=== PATIENT | male | born 1930 | race Caucasian/White ===

== ENCOUNTER 2020-02-16 09:03 | Outpatient (CLI) | payer MEDICARE, OTHER ==
--- NOTE | 2020-02-16 09:57 | RAD ---
PA AND LATERAL VIEWS CHEST: HISTORY: Dyspnea. FINDINGS: Comparison is made with the exam of 04/28/2019. FINDINGS: The heart size is normal. The aorta is tortuous. 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 Chr onic parenchymal changes are again noted. No pneumothoraces, focal areas of consolidation, or pleura l effusions are seen. A hiatal hernia is redemonstrated. IMPRESSION: Stable exam. No acute process. POS: PRISCILLA
== END 2020-02-16 09:04 | disposition home or self-care (01) ==
LOC: BICRAD 09:03
PROVIDERS: ATTEND Internal Medicine Critical Care Medicine
DX: R06.00 Dyspnea, unspecified (principal)
CPT/HCPCS: 71046

== ENCOUNTER 2020-02-24 09:30 | Outpatient (CLI) | payer MEDICARE ==
--- NOTE | 2020-02-24 11:35 | CT ---
HIGH RESOLUTION CT OF THE THORAX WITHOUT IV CONTRAST: INDICATION: An 89-year-old male with shortness of breath for many years. COMPARISON: No CT comparisons are available. FINDINGS: There is interstitial thickening involving the interlobular and intralobular segments of the peripher al aspects of both lungs seen predominantly in a basilar distribution with peripheral bronchiectasis seen affecting both lungs again more prominent within the lower lobes. There are patchy areas of jim a-[id number]-type airspace opacity within the lingula suspicious for an area of bronchopneumonia. There is also some tree-in-bud nodularity within the left upper lobe suspicious for bronchopneumonia. Ther e is a large hiatal hernia. There are coronary artery and thoracic aorta calcifications. There is c ardiomegaly. There is a dual-lead pacemaker. There is a mildly prominent right paratracheal lymph n ode measuring 1.3 cm. Visualized upper abdomen reveals no definite acute abnormality. IMPRESSION: 1. Findings of moderate to severe interstitial lung disease seen predominantly in a basilar distribu tion which can be related to usual interstitial pneumonitis or nonspecific interstitial pneumonia. 2. Areas of suspected bronchopneumonia in the left upper lobe and lingula. CT followup in 6-8 weeks is recommended to document resolution. 3. Large hiatal hernia. 4. Enlarged right paratracheal lymph node may be reactive in nature. Followup on the above-recommen ded CT is recommended. CODE T POS: JOSIAH
== END 2020-02-24 09:31 | disposition home or self-care (01) ==
LOC: CT 09:30
PROVIDERS: ATTEND Internal Medicine Critical Care Medicine
DX: R06.09 Other forms of dyspnea (principal); K44.9 Diaphragmatic hernia without obstruction or gangrene; R59.0 Localized enlarged lymph nodes; J84.9 Interstitial pulmonary disease, unspecified
CPT/HCPCS: 71250

== ENCOUNTER 2020-04-01 11:15 | Inpatient (IN) | payer MEDICARE ==
[2020-06-04 13:59] VITALS: BMI 25.1
[2020-06-08] MEDS ORDERED: Vancomycin 1 GM/200 ML BAG ONE (07:12)
[2020-06-08] MEDS ORDERED: Tranexamic Acid 1,000 MG/10 ML VIAL ONE (07:12)
[2020-06-08] MEDS ORDERED: Sodium Chloride 0.9% 100 ML ONE (07:12)
[2020-06-08] MEDS ORDERED: Midazolam HCl 2 mg/2 ml Vial ONE ×2 (08:15→08:33)
[2020-06-08] MEDS ORDERED: Fentanyl 100 MCG/2 ML VIAL ONE ×2 (08:15→08:33)
[2020-06-08] MEDS ORDERED: Lidocaine 1% (PF) 30 ML VIAL ONE (08:33)
[2020-06-08] MEDS ORDERED: Zolpidem Tartrate 5 MG TAB PO PRN ×2 (08:58→09:15)
[2020-06-08] MEDS ORDERED: Promethazine HCl 25 MG/ML VIAL IM PRN ×2 (08:58→09:15)
[2020-06-08] MEDS ORDERED: traMADol HCl 50 MG TAB PO PRN ×3 (08:58→09:15)
[2020-06-08] MEDS ORDERED: Ondansetron PF 4 MG/2 ML Vial IVP PRN ×2 (08:58→09:15)
[2020-06-08] MEDS ORDERED: Acetaminophen 325 MG TAB PO PRN (08:58)
[2020-06-08] MEDS ORDERED: HYDROcodone/Acetaminophen 10/325 mg Tablet PO PRN ×4 (08:58→09:15)
[2020-06-08] MEDS ORDERED: diphenhydrAMINE 25 MG CAP PO PRN (08:58)
[2020-06-08] MEDS: Tamsulosin HCl 0.4 MG CAP PO SCH (09:00)
[2020-06-08] MEDS: Senokot S 8.6-50 MG TAB PO SCH ×2 (09:00→20:34)
[2020-06-08] MEDS ORDERED: Aspirin 81 mg Enteric Coated Tablet PO SCH (09:00)
[2020-06-08] MEDS: Multivitamin W/ Minerals 1 TAB PO SCH (09:00)
[2020-06-08] MEDS: Pregabalin 50 MG CAP PO SCH ×2 (09:00→20:34)
[2020-06-08] MEDS: Sodium Chloride 0.9% 1,000 ML IV SCH ×3 (09:00→22:41)
[2020-06-08] MEDS ORDERED: Dutasteride 0.5 MG CAP PO SCH (09:00)
[2020-06-08] MEDS: Ferrous Gluconate 324 MG TAB PO SCH ×2 (09:00→20:34)
[2020-06-08] MEDS: Dronedarone HCl 400 MG TAB PO SCH ×2 (09:00→20:34)
[2020-06-08] MEDS: Aspirin 325 MG TAB PO SCH (09:00)
[2020-06-08] MEDS ORDERED: Ezetimibe 10 MG TAB PO SCH (09:00)
[2020-06-08] MEDS ORDERED: Fentanyl 100 MCG/2 ML VIAL IV PRN (09:04)
[2020-06-08] MEDS ORDERED: Ondansetron PF 4 MG/2 ML Vial ONE (09:12)
[2020-06-08] MEDS ORDERED: Ropivacaine 0.5% HCl/PF (150 MG/30 ML VIAL) ONE (09:12)
[2020-06-08] MEDS ORDERED: Ropivacaine 2% HCl/PF (20 MG/10 ML VIAL) ONE (09:12)
[2020-06-08] MEDS ORDERED: Lidocaine 1% PF 5 ML VIAL ONE (09:12)
[2020-06-08] MEDS ORDERED: Ketorolac Tromethamine 30 MG/ML VIAL ONE (09:12)
[2020-06-08] MEDS ORDERED: Dexamethasone 20 MG/5 ML VIAL ONE (09:12)
[2020-06-08] MEDS ORDERED: PROPOFOL 200 MG/20 ML VIAL ONE (09:12)
[2020-06-08] MEDS ORDERED: Ropivacaine 0.2% 550 ML 550 ML NERVE BLCK SCH (09:15)
[2020-06-08] MEDS ORDERED: Ondansetron HCl/PF 4 MG/2 ML Vial IVP PRN (09:55)
[2020-06-08] MEDS: Ketorolac Tromethamine 30 MG/ML VIAL IVP SCH ×3 (14:50→23:18)
[2020-06-08] MEDS: CEFAZOLIN 2 GM in Premix Bag 1 BAG IVPB SCH ×2 (15:07→22:12)
[2020-06-08] MEDS: Rosuvastatin 20 MG TAB PO SCH (20:34)
[2020-06-08] MEDS: Ezetimibe 10 MG TAB PO SCH (22:12)
[2020-06-08] MEDS: Dutasteride 0.5 MG CAP PO SCH (22:12)
[2020-06-09] MEDS: Ketorolac Tromethamine 30 MG/ML VIAL IVP SCH ×4 (05:46→23:05)
[2020-06-09] MEDS: Sodium Chloride 0.9% 1,000 ML IV SCH ×2 (06:16→15:14)
[2020-06-09 06:30] LABS: Hemoglobin 10.3 g/dL (14.0-18.0); Mean Corpuscular HGB CONC 33.8 g/dL (32.0-36.0); Mean Corpuscular Hemoglobin 28.5 pg (27.0-31.0); Mean Corpuscular Volume 84.3 fL (78.0-98.0); Mean Platelet Volume 7.8 fL (7.4-10.4); Platelet Count 148 thou/uL (130-400); RBC Distribution Width 13.2 % (11.5-14.5); Red Blood Cell (RBC) Count 3.62 mill/uL (4.70-6.10); White Blood Cell (WBC) Count 10.5 thou/uL (4.8-10.8)
[2020-06-09] MEDS: Aspirin 325 MG TAB PO SCH (08:40)
[2020-06-09] MEDS: Tamsulosin HCl 0.4 MG CAP PO SCH (08:40)
[2020-06-09] MEDS: Senokot S 8.6-50 MG TAB PO SCH ×2 (08:40→19:57)
[2020-06-09] MEDS: Fluticasone Propionate Nasal Spray 16 gm Bottle NASAL SCH (08:40)
[2020-06-09] MEDS: Dronedarone HCl 400 MG TAB PO SCH ×2 (08:40→19:59)
[2020-06-09] MEDS: Ferrous Gluconate 324 MG TAB PO SCH ×2 (08:41→19:59)
[2020-06-09] MEDS: Pregabalin 50 MG CAP PO SCH ×2 (08:41→19:57)
[2020-06-09] MEDS: Multivitamin W/ Minerals 1 TAB PO SCH (08:41)
[2020-06-09] MEDS: Dutasteride 0.5 MG CAP PO SCH (19:57)
[2020-06-09] MEDS: Rosuvastatin 20 MG TAB PO SCH (19:58)
[2020-06-09] MEDS: Ezetimibe 10 MG TAB PO SCH (19:59)
[2020-06-10] MEDS: Sodium Chloride 0.9% 1,000 ML IV SCH ×2 (03:08→11:23)
[2020-06-10] MEDS: Ketorolac Tromethamine 30 MG/ML VIAL IVP SCH (05:19)
[2020-06-10 05:47] LABS: #Eosinphils 0.3 thou/uL (0.0-0.7); #Lymphocytes 1.8 thou/uL (1.20-3.40); #Monocytes 1.2 thou/uL (0.11-0.59); #Neutrophils 7.2 thou/uL (1.40-6.50); %Basophils 0.4 % (0.0-1.0); %Eosinophils 2.9 % (0.0-10.0); %Lymphocytes 17.3 % (21.0-51.0); %Neutrophils 68.4 % (42.0-75.0); Hemoglobin 10.3 g/dL (14.0-18.0); Hemoglobin 10.5 g/dL (14.0-18.0); Mean Corpuscular HGB CONC 32.1 g/dL (32.0-36.0); Mean Corpuscular HGB CONC 32.6 g/dL (32.0-36.0); Mean Corpuscular Hemoglobin 26.9 pg (27.0-31.0); Mean Corpuscular Hemoglobin 27.3 pg (27.0-31.0); Mean Platelet Volume 7.9 fL (7.4-10.4); Mean Platelet Volume 8.4 fL (7.4-10.4); Platelet Count 145 thou/uL (130-400); Platelet Count 148 thou/uL (130-400); RBC Distribution Width 13.7 % (11.5-14.5); Red Blood Cell (RBC) Count 3.82 mill/uL (4.70-6.10); Red Blood Cell (RBC) Count 3.83 mill/uL (4.70-6.10); White Blood Cell (WBC) Count 10.5 thou/uL (4.8-10.8); White Blood Cell (WBC) Count 10.9 thou/uL (4.8-10.8)
[2020-06-10 06:17] LABS: Anion Gap 12 mmol/L (10-20); BUN (Urea Nitrogen) 33 mg/dL (8.4-25.7); Calc. Creatinine Clearance 39 mL/min (70-130); Calcium 7.4 mg/dL (7.8-10.44); Carbon Dioxide 20 mmol/L (23-31); Chloride 112 mmol/L (98-107); Glucose 109 mg/dL (83-110); Sodium 139 mmol/L (136-145)
[2020-06-10] MEDS: Tamsulosin HCl 0.4 MG CAP PO SCH (09:24)
[2020-06-10] MEDS: Pregabalin 50 MG CAP PO SCH (09:24)
[2020-06-10] MEDS: Ferrous Gluconate 324 MG TAB PO SCH (09:25)
[2020-06-10] MEDS: Multivitamin W/ Minerals 1 TAB PO SCH (09:25)
[2020-06-10] MEDS: Aspirin 325 MG TAB PO SCH (09:25)
[2020-06-10] MEDS: Dronedarone HCl 400 MG TAB PO SCH (09:26)
[2020-06-10] MEDS: Senokot S 8.6-50 MG TAB PO SCH (09:26)
[2020-06-10] MEDS: Fluticasone Propionate Nasal Spray 16 gm Bottle NASAL SCH (09:26)
[2020-06-10 11:59] VITALS: BP 132/70; TEMP 97.8
== END 2020-06-10 14:20 | disposition home or self-care (01) | DRG 470 ==
LOC: SJJU 06-08 06:21 → EDSTATUS 06-08 11:15 → SURG B 06-08 14:19
PROVIDERS: ADMIT Orthopaedic Surgery; ATTEND Hospitalist
PROC: 0SRD0J9 Replacement of Left Knee Joint with Synthetic Substitute, Cemented, Open Approach (ICD-10-PCS; principal; 2020-06-08)
DX: M17.12 Unilateral primary osteoarthritis, left knee (principal); I25.10 Atherosclerotic heart disease of native coronary artery without angina pectoris; I48.0 Paroxysmal atrial fibrillation; I10 Essential (primary) hypertension; N40.0 Benign prostatic hyperplasia without lower urinary tract symptoms; G89.29 Other chronic pain; K21.9 Gastro-esophageal reflux disease without esophagitis; E78.5 Hyperlipidemia, unspecified; Z95.5 Presence of coronary angioplasty implant and graft
CPT/HCPCS: 36415; 80048; 85027; A4306; C1713; C1776; J0690; J1100; J1885; J2001; J2250; J2405; J2704; J2795; J3010; J3370; J3490

== ENCOUNTER 2020-06-03 13:05 | Outpatient (CLI) | payer MEDICARE ==
[2020-06-03 15:08] LABS: Bilirubin Neg (Negative); Blood, Urine Negative (Negative); Clarity Clear (Clear); Glucose, Urine (Dipstick) Normal (Negative); Ketone, Urine Negative (Negative); Leukocyte 25 (Negative); Nitrite Negative (Negative); Protein, Urine (Dipstick) 15 mg/dl (Neg-Trace); Specific Gravity, Urine 1.015 (1.002-1.036)
[2020-06-03 15:11] LABS: #Basophils 0.1 10x3/uL (0.0-0.2); #Eosinphils 0.5 10x3/uL (0.0-0.5); #Monocytes 0.7 10x3/uL (0.0-1.1); #Neutrophils 4.6 10x3/uL (1.5-8.4); %Basophils 0.6 % (0.0-2.0); %Eosinophils 6.1 % (0.0-6.0); %Lymphocytes 28.4 % (18.0-47.0); %Monocytes 8.4 % (0.0-10.0); %Neutrophils 56.1 % (40.0-75.0); Hemoglobin 12.3 g/dL (13.5-17.5); Mean Corpuscular HGB CONC 31.1 g/dL (32.0-36.0); Mean Corpuscular Hemoglobin 26.3 pg (27.0-33.0); Mean Corpuscular Volume 84.8 fl (81.2-95.1); Mean Platelet Volume 9.6 fl (7.4-10.4); Platelet Count 201 10x3/uL (150-450); RBC Distribution Width 14.7 % (11.5-14.5); Red Blood Cell (RBC) Count 4.67 10x6/uL (4.32-5.72); White Blood Cell (WBC) Count 8.2 10x3/uL (3.5-10.5)
[2020-06-03 15:27] LABS: INR-International Normal Ratio 1.1; Prothrombin Time 11.5 sec (9.5-12.1)
[2020-06-03 15:29] LABS: Anion Gap 14 mmol/L (10-20); BUN (Urea Nitrogen) 17 mg/dL (8.4-25.7); Calc. Creatinine Clearance 0 mL/min (70-130); Calcium 8.2 mg/dL (7.8-10.44); Carbon Dioxide 23 mmol/L (23-31); Chloride 108 mmol/L (98-107); Glucose 89 mg/dL (83-110); Potassium 4.4 mmol/L (3.5-5.1); Sodium 141 mmol/L (136-145)
[2020-06-03 16:15] LABS: RBC/HPF 0-3 HPF (0-3); Squamous Epithelial 0-3 HPF (0-3)
[2020-06-03 16:16] LABS: Bacteria/HPF Rare-Few HPF (None Seen); Mucous/LPF 1+ LPF (<2+)
[2020-06-04 04:32] LABS: SARS-CoV-2 PCR by NAA Not Detected (NotDetected)
== END 2020-06-03 13:06 | disposition home or self-care (01) ==
LOC: LABBT 13:05
PROVIDERS: ATTEND Orthopaedic Surgery
DX: Z01.818 Encounter for other preprocedural examination (principal); Z20.822 Contact with and (suspected) exposure to COVID-19; M17.12 Unilateral primary osteoarthritis, left knee
CPT/HCPCS: 80048; 81001; 85025; 85610; 87081; 93005; U0003; U0005; 87635; 93010

== ENCOUNTER 2020-08-31 10:40 | Outpatient (CLI) | payer MEDICARE | END 2020-08-31 10:41 | disposition home or self-care (01) | LOC: BICCT 10:40 | PROVIDERS: ATTEND Internal Medicine Critical Care Medicine | DX: J84.10 Pulmonary fibrosis, unspecified (principal); K44.9 Diaphragmatic hernia without obstruction or gangrene; E04.1 Nontoxic single thyroid nodule; J47.9 Bronchiectasis, uncomplicated | CPT/HCPCS: 71250 ==

== ENCOUNTER 2020-09-30 09:19 | Outpatient (CLI) | payer MEDICARE ==
[2020-09-30 12:11] LABS: Prothrombin Time 11.2 sec (9.5-12.1)
[2020-09-30 12:12] LABS: Anion Gap 14 mmol/L (10-20); BUN (Urea Nitrogen) 25 mg/dL (8.4-25.7); Calc. Creatinine Clearance 0 mL/min (70-130); Calcium 9.1 mg/dL (7.8-10.44); Carbon Dioxide 25 mmol/L (23-31); Chloride 109 mmol/L (98-107); Glucose 102 mg/dL (83-110); Potassium 5.2 mmol/L (3.5-5.1); Sodium 143 mmol/L (136-145)
[2020-09-30 12:15] LABS: #Basophils 0.1 10x3/uL (0.0-0.2); #Eosinphils 0.6 10x3/uL (0.0-0.5); #Monocytes 0.9 10x3/uL (0.0-1.1); #Neutrophils 5.1 10x3/uL (1.5-8.4); %Basophils 0.6 % (0.0-2.0); %Eosinophils 6.4 % (0.0-6.0); %Lymphocytes 28.5 % (18.0-47.0); %Monocytes 10.1 % (0.0-10.0); %Neutrophils 54.2 % (40.0-75.0); Hemoglobin 12.7 g/dL (13.5-17.5); Mean Corpuscular HGB CONC 31.2 g/dL (32.0-36.0); Mean Corpuscular Hemoglobin 26.1 pg (27.0-33.0); Mean Corpuscular Volume 83.7 fl (81.2-95.1); Mean Platelet Volume 9.9 fl (7.4-10.4); Platelet Count 237 10x3/uL (150-450); RBC Distribution Width 14.9 % (11.5-14.5); Red Blood Cell (RBC) Count 4.86 10x6/uL (4.32-5.72); White Blood Cell (WBC) Count 9.3 10x3/uL (3.5-10.5)
== END 2020-09-30 09:20 | disposition home or self-care (01) ==
LOC: LABBT 09:19
PROVIDERS: ATTEND Orthopaedic Surgery
DX: Z01.812 Encounter for preprocedural laboratory examination (principal); M17.11 Unilateral primary osteoarthritis, right knee
CPT/HCPCS: 80048; 85025; 85610; 87081

== ENCOUNTER 2020-10-05 06:14 | Inpatient (IN) | payer MEDICARE ==
[2020-10-05 18:49] VITALS: BMI 24.4
[2020-10-13 08:29] VITALS: TEMP 98
[2020-10-13 12:16] VITALS: BP 135/82
== END 2020-10-13 16:34 | disposition home health service (06) | DRG 469 ==
LOC: SDC 06:14 → SURG A 09:14
PROVIDERS: ADMIT Orthopaedic Surgery; ATTEND Internal Medicine
PROC: 0SRC0J9 Replacement of Right Knee Joint with Synthetic Substitute, Cemented, Open Approach (ICD-10-PCS; principal; 2020-10-05)
PROC: 0T2BX0Z Change Drainage Device in Bladder, External Approach (ICD-10-PCS; 2020-10-07)
PROC: 0DJ08ZZ Inspection of Upper Intestinal Tract, Via Natural or Artificial Opening Endoscopic (ICD-10-PCS; 2020-10-10)
DX: M17.11 Unilateral primary osteoarthritis, right knee (principal); J18.9 Pneumonia, unspecified organism; E78.5 Hyperlipidemia, unspecified; I25.10 Atherosclerotic heart disease of native coronary artery without angina pectoris; N40.1 Benign prostatic hyperplasia with lower urinary tract symptoms; K44.9 Diaphragmatic hernia without obstruction or gangrene; H40.9 Unspecified glaucoma; K21.00 Gastro-esophageal reflux disease with esophagitis, without bleeding; R13.10 Dysphagia, unspecified; R33.8 Other retention of urine; I48.91 Unspecified atrial fibrillation; Z79.82 Long term (current) use of aspirin; Z79.899 Other long term (current) drug therapy; Z95.5 Presence of coronary angioplasty implant and graft; Z98.890 Other specified postprocedural states
CPT/HCPCS: 36415; 71045; 71275; 80048; 81003; 81015; 85025; 85027; 85379; 94640; A4306; C1713; C1776; C9113; J0456; J0690; J0696; J1100; J1644; J1885; J1940; J2175; J2250; J2405; J2704; J2795; J3010; J3370; J3490; J7050; J7620; J7626; Q9967

== ENCOUNTER 2020-12-28 13:32 | Outpatient (CLI) | payer MEDICARE | END 2020-12-28 13:33 | disposition home or self-care (01) | LOC: BICRAD 13:32 | PROVIDERS: ATTEND Anesthesiology Pain Medicine | DX: M47.812 Spondylosis without myelopathy or radiculopathy, cervical region (principal) | CPT/HCPCS: 72052 ==

== ENCOUNTER 2021-02-01 14:03 | Outpatient (CLI) | payer MEDICARE | END 2021-02-01 14:04 | disposition home or self-care (01) | LOC: BICCT 14:03 | PROVIDERS: ATTEND Anesthesiology Pain Medicine | DX: M48.062 Spinal stenosis, lumbar region with neurogenic claudication (principal); M47.816 Spondylosis without myelopathy or radiculopathy, lumbar region; Z98.890 Other specified postprocedural states; K44.9 Diaphragmatic hernia without obstruction or gangrene | CPT/HCPCS: 72131 ==

== ENCOUNTER 2021-02-17 11:15 | Inpatient (IN) | payer MEDICARE ==
[~2021-02-17 11:15] MED LIST: Iopamidol-370 76% 500 ML 1 ML ONE
[2021-02-17 11:58] LABS: #Eosinphils 0.2 thou/uL (0.0-0.7); #Lymphocytes 1.7 thou/uL (1.20-3.40); #Monocytes 1.1 thou/uL (0.11-0.59); #Neutrophils 8.3 thou/uL (1.40-6.50); %Basophils 0.2 % (0.0-1.0); %Eosinophils 1.4 % (0.0-10.0); %Lymphocytes 15.2 % (21.0-51.0); %Monocytes 9.9 % (0.0-10.0); %Neutrophils 73.2 % (42.0-75.0); Hemoglobin 12.4 g/dL (14.0-18.0); Mean Corpuscular HGB CONC 33.5 g/dL (32.0-36.0); Mean Corpuscular Hemoglobin 26.7 pg (27.0-31.0); Mean Corpuscular Volume 79.9 fL (78.0-98.0); Mean Platelet Volume 7.7 fL (7.4-10.4); Platelet Count 212 thou/uL (130-400); RBC Distribution Width 14.4 % (11.5-14.5); Red Blood Cell (RBC) Count 4.64 mill/uL (4.70-6.10); White Blood Cell (WBC) Count 11.3 thou/uL (4.8-10.8)
[2021-02-17 12:02] LABS: INR-International Normal Ratio 1.3; PTT 62.1 sec (22.9-36.1); Prothrombin Time 16.4 sec (12.0-14.7)
[2021-02-17 12:18] LABS: ALT (SGPT) 9 U/L (8-55); AST (SGOT) 14 U/L (5-34); Albumin 3.5 g/dL (3.4-4.8); Alkaline Phosphatase 67 U/L (40-110); Anion Gap 12 mmol/L (10-20); BUN (Urea Nitrogen) 16 mg/dL (8.4-25.7); Bilirubin, Total 0.8 mg/dL (0.2-1.2); CK (CPK) 92 U/L (30-200); Calc. Creatinine Clearance 0 mL/min (70-130); Calcium 8.5 mg/dL (7.8-10.44); Carbon Dioxide 24 mmol/L (23-31); Chloride 106 mmol/L (98-107); Globulin 3.6 g/dL (2.4-3.5); Glucose 113 mg/dL (83-110); Potassium 3.7 mmol/L (3.5-5.1); Protein, Total 7.1 g/dL (5.8-8.1); Sodium 138 mmol/L (136-145)
[2021-02-17] MEDS ORDERED: cefTRIAXone\\ROCEPHIN 2 GM VIAL ONE (13:33)
[2021-02-17 13:58] LABS: SARS-CoV-2 NAA Rapid Test Not Detected (NotDetected)
[2021-02-17] MEDS ORDERED: Azithromycin 500 MG VIAL ONE (14:42)
[2021-02-17] MEDS: cefTRIAXone\\ROCEPHIN 1 GM in Sodium Chloride 0.9% 100 ML IVPB SCH (16:08)
[2021-02-17] MEDS: Azithromycin 500 MG in Sodium Chloride 0.9% 250 ML 250 ML IVPB SCH (16:08)
[2021-02-17] MEDS ORDERED: Ondansetron ODT 4 MG TAB PO PRN (18:39)
[2021-02-17] MEDS ORDERED: Promethazine 25 MG TAB PO PRN (19:03)
[2021-02-17] MEDS: Aspirin 81 mg Enteric Coated Tablet PO SCH (20:42)
[2021-02-17] MEDS: Amiodarone 200 MG TAB PO SCH (20:43)
[2021-02-17] MEDS: Heparin 5,000 UNITS/ML VIAL SC SCH (20:44)
[2021-02-17] MEDS: Ezetimibe 10 MG TAB PO SCH (20:45)
[2021-02-17] MEDS: Rosuvastatin 20 MG TAB PO SCH (20:45)
[2021-02-17] MEDS: Dutasteride 0.5 MG CAP PO SCH (20:46)
[2021-02-17] MEDS: Acetaminophen 325 MG TAB PO PRN (20:46)
[2021-02-17] MEDS ORDERED: Pregabalin 50 MG CAP PO SCH (21:00)
[2021-02-17] MEDS: Albuterol Sulfate 1.25 MG/3 ML NEB NEB PRN (21:30)
[2021-02-17 22:02] LABS: Legionella Urinary Ag Negative (Negative); Strep pneumo Urine Ag NEGATIVE (NEGATIVE)
[2021-02-18 06:38] LABS: #Eosinphils 0.5 thou/uL (0.0-0.7); #Lymphocytes 1.4 thou/uL (1.20-3.40); #Monocytes 1.2 thou/uL (0.11-0.59); #Neutrophils 6.4 thou/uL (1.40-6.50); %Basophils 0.5 % (0.0-1.0); %Eosinophils 5.2 % (0.0-10.0); %Lymphocytes 14.4 % (21.0-51.0); %Monocytes 12.2 % (0.0-10.0); %Neutrophils 67.7 % (42.0-75.0); Hemoglobin 10.3 g/dL (14.0-18.0); Mean Corpuscular HGB CONC 33.2 g/dL (32.0-36.0); Mean Corpuscular Hemoglobin 26.9 pg (27.0-31.0); Mean Platelet Volume 7.5 fL (7.4-10.4); Platelet Count 182 thou/uL (130-400); RBC Distribution Width 14.2 % (11.5-14.5); Red Blood Cell (RBC) Count 3.82 mill/uL (4.70-6.10); White Blood Cell (WBC) Count 9.4 thou/uL (4.8-10.8)
[2021-02-18 07:00] LABS: Anion Gap 8 mmol/L (10-20); BUN (Urea Nitrogen) 16 mg/dL (8.4-25.7); Calc. Creatinine Clearance 41 mL/min (70-130); Carbon Dioxide 26 mmol/L (23-31); Chloride 108 mmol/L (98-107); Glucose 87 mg/dL (83-110); Potassium 3.8 mmol/L (3.5-5.1); Sodium 138 mmol/L (136-145)
[2021-02-18] MEDS: Aspirin 81 mg Enteric Coated Tablet PO SCH ×2 (08:44→22:08)
[2021-02-18] MEDS: Tamsulosin HCl 0.4 MG CAP PO SCH (08:47)
[2021-02-18] MEDS: Amiodarone 200 MG TAB PO SCH ×2 (08:47→22:08)
[2021-02-18] MEDS: Heparin 5,000 UNITS/ML VIAL SC SCH ×2 (08:48→22:08)
[2021-02-18] MEDS: Pregabalin 75 MG CAP PO SCH ×2 (08:55→22:07)
[2021-02-18] MEDS ORDERED: Enoxaparin Sodium 40 MG/0.4 ML SYRINGE SC SCH (09:00)
[2021-02-18] MEDS ORDERED: Cepastat Lozenges 1 LOZ PO PRN (12:41)
[2021-02-18] MEDS: cefTRIAXone\\ROCEPHIN 1 GM in Sodium Chloride 0.9% 100 ML IVPB SCH (16:02)
[2021-02-18] MEDS: Albuterol Sulfate 1.25 MG/3 ML NEB NEB PRN (16:34)
[2021-02-18] MEDS: Azithromycin 500 MG in Sodium Chloride 0.9% 250 ML 250 ML IVPB SCH (17:09)
[2021-02-18] MEDS: Rosuvastatin 20 MG TAB PO SCH (22:07)
[2021-02-18] MEDS: Dutasteride 0.5 MG CAP PO SCH (22:07)
[2021-02-18] MEDS: Ezetimibe 10 MG TAB PO SCH (22:08)
[2021-02-18] MEDS: Guaifenesin DM 100-10/5 ML UDCUP PO PRN (22:16)
[2021-02-19 06:52] LABS: #Eosinphils 0.5 thou/uL (0.0-0.7); #Lymphocytes 1.3 thou/uL (1.20-3.40); #Monocytes 1.1 thou/uL (0.11-0.59); #Neutrophils 6.9 thou/uL (1.40-6.50); %Basophils 0.1 % (0.0-1.0); %Eosinophils 4.7 % (0.0-10.0); %Lymphocytes 13.7 % (21.0-51.0); %Monocytes 11.4 % (0.0-10.0); Hemoglobin 10.3 g/dL (14.0-18.0); Mean Corpuscular HGB CONC 32.6 g/dL (32.0-36.0); Mean Corpuscular Hemoglobin 26.5 pg (27.0-31.0); Mean Corpuscular Volume 81.4 fL (78.0-98.0); Mean Platelet Volume 7.8 fL (7.4-10.4); Platelet Count 185 thou/uL (130-400); RBC Distribution Width 14.4 % (11.5-14.5); Red Blood Cell (RBC) Count 3.87 mill/uL (4.70-6.10); White Blood Cell (WBC) Count 9.8 thou/uL (4.8-10.8)
[2021-02-19 07:14] LABS: Anion Gap 10 mmol/L (10-20); BUN (Urea Nitrogen) 19 mg/dL (8.4-25.7); Calc. Creatinine Clearance 42 mL/min (70-130); Calcium 8.1 mg/dL (7.8-10.44); Carbon Dioxide 25 mmol/L (23-31); Chloride 108 mmol/L (98-107); Glucose 85 mg/dL (83-110); Potassium 3.6 mmol/L (3.5-5.1); Sodium 139 mmol/L (136-145)
[2021-02-19] MEDS: Pregabalin 75 MG CAP PO SCH ×2 (10:02→22:14)
[2021-02-19] MEDS: Heparin 5,000 UNITS/ML VIAL SC SCH (10:02)
[2021-02-19] MEDS: Aspirin 81 mg Enteric Coated Tablet PO SCH (10:03)
[2021-02-19] MEDS: Amiodarone 200 MG TAB PO SCH ×2 (10:03→22:15)
[2021-02-19] MEDS: Tamsulosin HCl 0.4 MG CAP PO SCH (10:03)
[2021-02-19] MEDS ORDERED: Albuterol Sulfate 1.25 MG/3 ML NEB NEB SCH ×3 (13:30→17:00)
[2021-02-19] MEDS: cefTRIAXone\\ROCEPHIN 1 GM in Sodium Chloride 0.9% 100 ML IVPB SCH (15:21)
[2021-02-19] MEDS: Guaifenesin DM 100-10/5 ML UDCUP PO PRN (15:21)
[2021-02-19] MEDS: Azithromycin 500 MG in Sodium Chloride 0.9% 250 ML 250 ML IVPB SCH (16:32)
[2021-02-19] MEDS: Acetaminophen 325 MG TAB PO PRN ×2 (16:32→22:14)
[2021-02-19] MEDS ORDERED: Albuterol Sulfate 1.25 MG/3 ML NEB NEB PRN (17:31)
[2021-02-19] MEDS: Ezetimibe 10 MG TAB PO SCH (22:14)
[2021-02-19] MEDS: Rosuvastatin 20 MG TAB PO SCH (22:14)
[2021-02-19] MEDS: guaiFENesin ER 600 MG TAB PO SCH (22:15)
[2021-02-19] MEDS: Dutasteride 0.5 MG CAP PO SCH (22:15)
[2021-02-20] MEDS: Guaifenesin DM 100-10/5 ML UDCUP PO PRN ×3 (06:49→21:21)
[2021-02-20 07:16] LABS: #Eosinphils 0.3 thou/uL (0.0-0.7); #Lymphocytes 1.1 thou/uL (1.20-3.40); %Basophils 0.3 % (0.0-1.0); %Eosinophils 2.8 % (0.0-10.0); %Lymphocytes 10.4 % (21.0-51.0); %Monocytes 9.4 % (0.0-10.0); %Neutrophils 77.2 % (42.0-75.0); Hemoglobin 9.8 g/dL (14.0-18.0); Mean Corpuscular HGB CONC 33.3 g/dL (32.0-36.0); Mean Corpuscular Hemoglobin 27.1 pg (27.0-31.0); Mean Corpuscular Volume 81.2 fL (78.0-98.0); Mean Platelet Volume 8.1 fL (7.4-10.4); Platelet Count 177 thou/uL (130-400); RBC Distribution Width 14.2 % (11.5-14.5); Red Blood Cell (RBC) Count 3.62 mill/uL (4.70-6.10); White Blood Cell (WBC) Count 10.4 thou/uL (4.8-10.8)
[2021-02-20 07:34] LABS: Anion Gap 12 mmol/L (10-20); BUN (Urea Nitrogen) 19 mg/dL (8.4-25.7); Calc. Creatinine Clearance 41 mL/min (70-130); Calcium 7.9 mg/dL (7.8-10.44); Carbon Dioxide 24 mmol/L (23-31); Chloride 108 mmol/L (98-107); Glucose 126 mg/dL (83-110); Potassium 3.5 mmol/L (3.5-5.1); Sodium 140 mmol/L (136-145)
[2021-02-20] MEDS: Tamsulosin HCl 0.4 MG CAP PO SCH (08:47)
[2021-02-20] MEDS: guaiFENesin ER 600 MG TAB PO SCH ×2 (08:47→21:19)
[2021-02-20] MEDS: Amiodarone 200 MG TAB PO SCH ×2 (08:47→21:20)
[2021-02-20] MEDS: Acetaminophen 325 MG TAB PO PRN (08:47)
[2021-02-20] MEDS: Aspirin 81 mg Enteric Coated Tablet PO SCH (08:49)
[2021-02-20] MEDS: Pregabalin 75 MG CAP PO SCH ×2 (08:49→21:20)
[2021-02-20] MEDS: cefTRIAXone\\ROCEPHIN 1 GM in Sodium Chloride 0.9% 100 ML IVPB SCH (15:30)
[2021-02-20] MEDS: Azithromycin 500 MG in Sodium Chloride 0.9% 250 ML 250 ML IVPB SCH (17:12)
[2021-02-20 20:56] LABS: SARS-CoV-2 PCR by NAA Not Detected (NotDetected)
[2021-02-20] MEDS: Ezetimibe 10 MG TAB PO SCH (21:19)
[2021-02-20] MEDS: Rosuvastatin 20 MG TAB PO SCH (21:19)
[2021-02-20] MEDS: Dutasteride 0.5 MG CAP PO SCH (21:20)
[2021-02-21] MEDS ORDERED: ALPRAZolam 0.5 MG TAB PO SCH (03:00)
[2021-02-21 03:46] LABS: #Eosinphils 0.1 thou/uL (0.0-0.7); #Lymphocytes 0.6 thou/uL (1.20-3.40); #Neutrophils 12.2 thou/uL (1.40-6.50); %Basophils 0.1 % (0.0-1.0); %Eosinophils 0.8 % (0.0-10.0); %Lymphocytes 4.4 % (21.0-51.0); %Monocytes 7.4 % (0.0-10.0); %Neutrophils 87.3 % (42.0-75.0); Hemoglobin 10.7 g/dL (14.0-18.0); Mean Corpuscular HGB CONC 32.9 g/dL (32.0-36.0); Mean Corpuscular Hemoglobin 26.6 pg (27.0-31.0); Mean Corpuscular Volume 80.7 fL (78.0-98.0); Mean Platelet Volume 8.2 fL (7.4-10.4); Platelet Count 189 thou/uL (130-400); RBC Distribution Width 14.2 % (11.5-14.5); Red Blood Cell (RBC) Count 4.03 mill/uL (4.70-6.10); White Blood Cell (WBC) Count 13.9 thou/uL (4.8-10.8)
[2021-02-21 04:04] LABS: Anion Gap 11 mmol/L (10-20); BUN (Urea Nitrogen) 15 mg/dL (8.4-25.7); Calc. Creatinine Clearance 44 mL/min (70-130); Calcium 8.3 mg/dL (7.8-10.44); Carbon Dioxide 25 mmol/L (23-31); Chloride 105 mmol/L (98-107); Glucose 166 mg/dL (83-110); Potassium 3.5 mmol/L (3.5-5.1); Sodium 137 mmol/L (136-145)
[2021-02-21] MEDS: guaiFENesin ER 600 MG TAB PO SCH ×2 (08:15→19:47)
[2021-02-21] MEDS: Aspirin 81 mg Enteric Coated Tablet PO SCH (08:15)
[2021-02-21] MEDS: Tamsulosin HCl 0.4 MG CAP PO SCH (08:15)
[2021-02-21] MEDS: Amiodarone 200 MG TAB PO SCH ×2 (08:15→19:47)
[2021-02-21] MEDS: Pregabalin 75 MG CAP PO SCH ×2 (08:16→19:46)
[2021-02-21] MEDS ORDERED: Meropenem 2 GM, Admixture Fee 1 EACH in Sodium Chloride 0.9% 100 ML IVPB SCH (11:00)
[2021-02-21] MEDS: methylPREDNISolone Sod Succ 40 MG VIAL IVP SCH ×3 (11:32→23:06)
[2021-02-21] MEDS ORDERED: diphenhydrAMINE 25 MG CAP ONE (11:51)
[2021-02-21] MEDS ORDERED: guaiFENesin/Codeine 200 mg/20 mg 10 ml Cup ONE (11:52)
[2021-02-21] MEDS ORDERED: Promethazine 25 MG TAB ONE (12:03)
[2021-02-21] MEDS: Acetaminophen 325 MG TAB PO PRN (12:14)
[2021-02-21] MEDS ORDERED: ALPRAZolam 0.25 MG TAB ONE (12:49)
[2021-02-21] MEDS: ALPRAZolam 0.25 MG TAB PO PRN ×2 (12:51→19:53)
[2021-02-21] MEDS: Guaifenesin DM 100-10/5 ML UDCUP PO PRN ×2 (13:24→23:05)
[2021-02-21] MEDS: Dutasteride 0.5 MG CAP PO SCH (19:47)
[2021-02-21] MEDS: Rosuvastatin 20 MG TAB PO SCH (19:47)
[2021-02-21] MEDS: Ezetimibe 10 MG TAB PO SCH (19:47)
[2021-02-21] MEDS: Meropenem 2 GM, Admixture Fee 1 EACH in Sodium Chloride 0.9% 100 ML IVPB SCH (23:05)
[2021-02-21] MEDS: Melatonin 3 MG TAB PO PRN (23:06)
[2021-02-22] MEDS ORDERED: ALPRAZolam 0.25 MG TAB PO SCH (02:15)
[2021-02-22 03:44] LABS: #Lymphocytes 0.4 thou/uL (1.20-3.40); #Monocytes 0.5 thou/uL (0.11-0.59); #Neutrophils 12.6 thou/uL (1.40-6.50); %Eosinophils 0.2 % (0.0-10.0); %Lymphocytes 2.6 % (21.0-51.0); %Monocytes 3.6 % (0.0-10.0); %Neutrophils 93.6 % (42.0-75.0); Hemoglobin 11.2 g/dL (14.0-18.0); Mean Corpuscular HGB CONC 31.9 g/dL (32.0-36.0); Mean Corpuscular Volume 81.3 fL (78.0-98.0); Mean Platelet Volume 8.5 fL (7.4-10.4); Platelet Count 166 thou/uL (130-400); RBC Distribution Width 14.4 % (11.5-14.5); White Blood Cell (WBC) Count 13.5 thou/uL (4.8-10.8)
[2021-02-22 04:01] LABS: Anion Gap 15 mmol/L (10-20); BUN (Urea Nitrogen) 24 mg/dL (8.4-25.7); Calc. Creatinine Clearance 40 mL/min (70-130); Calcium 8.4 mg/dL (7.8-10.44); Carbon Dioxide 22 mmol/L (23-31); Chloride 103 mmol/L (98-107); Glucose 197 mg/dL (83-110); Potassium 3.7 mmol/L (3.5-5.1); Sodium 136 mmol/L (136-145)
[2021-02-22] MEDS: Guaifenesin DM 100-10/5 ML UDCUP PO PRN ×2 (04:52→22:44)
[2021-02-22] MEDS: methylPREDNISolone Sod Succ 40 MG VIAL IVP SCH ×4 (05:45→22:53)
[2021-02-22] MEDS: Aspirin 81 mg Enteric Coated Tablet PO SCH (08:26)
[2021-02-22] MEDS: Pregabalin 75 MG CAP PO SCH ×2 (08:26→20:29)
[2021-02-22] MEDS: ALPRAZolam 0.25 MG TAB PO PRN ×2 (08:26→22:44)
[2021-02-22] MEDS: guaiFENesin ER 600 MG TAB PO SCH ×2 (08:26→20:27)
[2021-02-22] MEDS: Amiodarone 200 MG TAB PO SCH (08:27)
[2021-02-22] MEDS: Tamsulosin HCl 0.4 MG CAP PO SCH (08:27)
[2021-02-22] MEDS: Enoxaparin Sodium 30 MG/0.3 ML SYRINGE SC SCH (10:00)
[2021-02-22] MEDS: Meropenem 2 GM, Admixture Fee 1 EACH in Sodium Chloride 0.9% 100 ML IVPB SCH ×2 (12:46→22:44)
[2021-02-22] MEDS: Lorazepam 2 MG/ML VIAL SLOW IVP PRN (12:54)
[2021-02-22] MEDS: Ezetimibe 10 MG TAB PO SCH (20:22)
[2021-02-22] MEDS: Rosuvastatin 20 MG TAB PO SCH (20:28)
[2021-02-22] MEDS: Melatonin 3 MG TAB PO PRN (20:29)
[2021-02-22] MEDS: Dutasteride 0.5 MG CAP PO SCH (20:30)
[2021-02-23 03:46] LABS: #Lymphocytes 0.4 thou/uL (1.20-3.40); #Monocytes 0.8 thou/uL (0.11-0.59); %Eosinophils 0.1 % (0.0-10.0); %Lymphocytes 2.1 % (21.0-51.0); %Monocytes 4.4 % (0.0-10.0); %Neutrophils 93.4 % (42.0-75.0); Hemoglobin 10.7 g/dL (14.0-18.0); Mean Corpuscular HGB CONC 32.5 g/dL (32.0-36.0); Mean Corpuscular Hemoglobin 26.2 pg (27.0-31.0); Mean Corpuscular Volume 80.7 fL (78.0-98.0); Mean Platelet Volume 8.7 fL (7.4-10.4); Platelet Count 164 thou/uL (130-400); RBC Distribution Width 14.3 % (11.5-14.5); Red Blood Cell (RBC) Count 4.08 mill/uL (4.70-6.10); White Blood Cell (WBC) Count 17.1 thou/uL (4.8-10.8)
[2021-02-23 04:03] LABS: Anion Gap 9 mmol/L (10-20); BUN (Urea Nitrogen) 38 mg/dL (8.4-25.7); Calc. Creatinine Clearance 39 mL/min (70-130); Calcium 7.9 mg/dL (7.8-10.44); Carbon Dioxide 27 mmol/L (23-31); Chloride 105 mmol/L (98-107); Glucose 186 mg/dL (83-110); Sodium 137 mmol/L (136-145)
[2021-02-23] MEDS: methylPREDNISolone Sod Succ 40 MG VIAL IVP SCH ×4 (05:53→23:57)
[2021-02-23] MEDS ORDERED: VANCOMYCIN IVPB PRN (07:55)
[2021-02-23] MEDS: Aspirin 81 mg Enteric Coated Tablet PO SCH (08:35)
[2021-02-23] MEDS: guaiFENesin ER 600 MG TAB PO SCH ×2 (08:35→21:21)
[2021-02-23] MEDS: Tamsulosin HCl 0.4 MG CAP PO SCH (08:35)
[2021-02-23] MEDS: Enoxaparin Sodium 30 MG/0.3 ML SYRINGE SC SCH (08:36)
[2021-02-23] MEDS: Pregabalin 75 MG CAP PO SCH ×2 (08:36→21:24)
[2021-02-23] MEDS ORDERED: Milk Of Magnesia 30 ML UDCUP PO PRN (09:17)
[2021-02-23] MEDS ORDERED: VANCOMYCIN 1.25 GM/250 ML BAG 1.25 GM in Premix Bag 1 BAG IVPB SCH (10:00)
[2021-02-23] MEDS: Senokot S 8.6-50 MG TAB PO SCH ×2 (11:08→21:21)
[2021-02-23] MEDS: Polyethylene Glycol 3350 17 GM Packet PO SCH ×2 (11:08→21:21)
[2021-02-23] MEDS: Vancomycin HCl 1.25 GM in Sodium Chloride 0.9% 250 ML 250 ML IVPB SCH (11:42)
[2021-02-23] MEDS: Meropenem 2 GM, Admixture Fee 1 EACH in Sodium Chloride 0.9% 100 ML IVPB SCH (11:43)
[2021-02-23] MEDS: Dutasteride 0.5 MG CAP PO SCH (21:20)
[2021-02-23] MEDS: Ezetimibe 10 MG TAB PO SCH (21:21)
[2021-02-23] MEDS: Rosuvastatin 20 MG TAB PO SCH (21:21)
[2021-02-23] MEDS: Meropenem 1 GM, Admixture Fee 1 EACH in Sodium Chloride 0.9% 100 ML IVPB SCH (23:57)
[2021-02-24] MEDS: Lorazepam 2 MG/ML VIAL SLOW IVP PRN ×2 (00:13→20:24)
[2021-02-24] MEDS: Melatonin 3 MG TAB PO PRN (02:06)
[2021-02-24] MEDS: ALPRAZolam 0.25 MG TAB PO PRN (02:06)
[2021-02-24 03:54] LABS: #Lymphocytes 0.4 thou/uL (1.20-3.40); #Monocytes 0.8 thou/uL (0.11-0.59); %Basophils 0.1 % (0.0-1.0); %Eosinophils 0.2 % (0.0-10.0); %Lymphocytes 2.3 % (21.0-51.0); %Monocytes 5.2 % (0.0-10.0); %Neutrophils 92.2 % (42.0-75.0); Hemoglobin 11.1 g/dL (14.0-18.0); Mean Corpuscular HGB CONC 32.8 g/dL (32.0-36.0); Mean Corpuscular Hemoglobin 26.5 pg (27.0-31.0); Mean Corpuscular Volume 80.8 fL (78.0-98.0); Mean Platelet Volume 8.5 fL (7.4-10.4); Platelet Count 175 thou/uL (130-400); RBC Distribution Width 14.7 % (11.5-14.5); Red Blood Cell (RBC) Count 4.19 mill/uL (4.70-6.10); White Blood Cell (WBC) Count 15.2 thou/uL (4.8-10.8)
[2021-02-24 04:11] LABS: Anion Gap 11 mmol/L (10-20); BUN (Urea Nitrogen) 50 mg/dL (8.4-25.7); Calc. Creatinine Clearance 35 mL/min (70-130); Calcium 7.6 mg/dL (7.8-10.44); Carbon Dioxide 26 mmol/L (23-31); Chloride 105 mmol/L (98-107); Glucose 185 mg/dL (83-110); Potassium 4.2 mmol/L (3.5-5.1); Sodium 138 mmol/L (136-145)
[2021-02-24] MEDS: methylPREDNISolone Sod Succ 40 MG VIAL IVP SCH ×3 (06:45→18:09)
[2021-02-24] MEDS: Enoxaparin Sodium 30 MG/0.3 ML SYRINGE SC SCH (09:15)
[2021-02-24] MEDS: guaiFENesin ER 600 MG TAB PO SCH ×2 (09:16→20:24)
[2021-02-24] MEDS: Polyethylene Glycol 3350 17 GM Packet PO SCH ×2 (09:16→20:24)
[2021-02-24] MEDS: Aspirin 81 mg Enteric Coated Tablet PO SCH (09:16)
[2021-02-24] MEDS: Tamsulosin HCl 0.4 MG CAP PO SCH (09:16)
[2021-02-24] MEDS: Pregabalin 75 MG CAP PO SCH ×2 (09:16→20:25)
[2021-02-24] MEDS: Senokot S 8.6-50 MG TAB PO SCH ×2 (09:16→20:25)
[2021-02-24] MEDS: Vancomycin HCl 1.25 GM in Sodium Chloride 0.9% 250 ML 250 ML IVPB SCH (11:05)
[2021-02-24] MEDS: Meropenem 1 GM, Admixture Fee 1 EACH in Sodium Chloride 0.9% 100 ML IVPB SCH (11:06)
[2021-02-24] MEDS ORDERED: Furosemide 40 MG/4 ML VIAL SLOW IVP SCH (11:15)
[2021-02-24 11:18] LABS: Actual Bicarbonate (HCO3a) 25.5 mEq/L (22-28); Base Excess (BEa) 1.1 mEq/L (-2.0 to +3.0); CO2 Tension 39.8 mmHg (35.0-45.0); Calcium, Ionized (arterial) 1.08 mmol/L (1.12-1.30); Carboxyhemoglobin (COHb) 0.4 gm% (0.0-3.0); Hemoglobin (Hb) 12.6 g/dL (14.0-18.0); Potassium - ABG Lab 3.98 mmol/L (3.70-5.30); pH, Arterial 7.43 (7.35-7.45)
[2021-02-24 11:19] LABS: O2 Tension (PaO2), arterial 58.2 mmHg (> 60.0); Puncture Site LRA
[2021-02-24] MEDS: Ezetimibe 10 MG TAB PO SCH (20:24)
[2021-02-24] MEDS: Dutasteride 0.5 MG CAP PO SCH (20:24)
[2021-02-24] MEDS: Rosuvastatin 20 MG TAB PO SCH (20:25)
[2021-02-25] MEDS: methylPREDNISolone Sod Succ 40 MG VIAL IVP SCH ×5 (00:03→23:14)
[2021-02-25] MEDS: Meropenem 1 GM, Admixture Fee 1 EACH in Sodium Chloride 0.9% 100 ML IVPB SCH ×3 (00:03→23:15)
[2021-02-25 03:57] LABS: #Lymphocytes 0.4 thou/uL (1.20-3.40); #Monocytes 0.7 thou/uL (0.11-0.59); #Neutrophils 11.5 thou/uL (1.40-6.50); %Basophils 0.1 % (0.0-1.0); %Eosinophils 0.1 % (0.0-10.0); %Lymphocytes 3.4 % (21.0-51.0); %Monocytes 5.3 % (0.0-10.0); %Neutrophils 91.1 % (42.0-75.0); Hemoglobin 11.8 g/dL (14.0-18.0); Mean Corpuscular HGB CONC 32.5 g/dL (32.0-36.0); Mean Corpuscular Hemoglobin 26.3 pg (27.0-31.0); Mean Corpuscular Volume 80.9 fL (78.0-98.0); Mean Platelet Volume 8.9 fL (7.4-10.4); Platelet Count 200 thou/uL (130-400); RBC Distribution Width 14.7 % (11.5-14.5); Red Blood Cell (RBC) Count 4.49 mill/uL (4.70-6.10); White Blood Cell (WBC) Count 12.6 thou/uL (4.8-10.8)
[2021-02-25 04:03] LABS: Anion Gap 14 mmol/L (10-20); BUN (Urea Nitrogen) 56 mg/dL (8.4-25.7); Calc. Creatinine Clearance 34 mL/min (70-130); Calcium 7.6 mg/dL (7.8-10.44); Carbon Dioxide 27 mmol/L (23-31); Chloride 103 mmol/L (98-107); Glucose 222 mg/dL (83-110); Potassium 4.2 mmol/L (3.5-5.1); Sodium 140 mmol/L (136-145)
[2021-02-25] MEDS: Senokot S 8.6-50 MG TAB PO SCH ×2 (08:45→20:07)
[2021-02-25] MEDS: guaiFENesin ER 600 MG TAB PO SCH ×2 (08:45→20:07)
[2021-02-25] MEDS: Polyethylene Glycol 3350 17 GM Packet PO SCH ×2 (08:45→20:17)
[2021-02-25] MEDS: Tamsulosin HCl 0.4 MG CAP PO SCH (08:45)
[2021-02-25] MEDS: Aspirin 81 mg Enteric Coated Tablet PO SCH (08:45)
[2021-02-25] MEDS: Pregabalin 75 MG CAP PO SCH ×2 (08:45→20:08)
[2021-02-25] MEDS: Enoxaparin Sodium 40 MG/0.4 ML SYRINGE SC SCH (08:46)
[2021-02-25 09:46] LABS: Vancomycin, Trough 15.7 ug/mL
[2021-02-25] MEDS: VANCOMYCIN 1.25 GM/250 ML BAG 1.25 GM in Premix Bag 1 BAG IVPB SCH (11:32)
[2021-02-25] MEDS: Rosuvastatin 20 MG TAB PO SCH (20:07)
[2021-02-25] MEDS: Ezetimibe 10 MG TAB PO SCH (20:07)
[2021-02-25] MEDS: Melatonin 3 MG TAB PO PRN (20:08)
[2021-02-25] MEDS: Dutasteride 0.5 MG CAP PO SCH (20:08)
[2021-02-26 04:27] LABS: Anion Gap 13 mmol/L (10-20); BUN (Urea Nitrogen) 57 mg/dL (8.4-25.7); Calc. Creatinine Clearance 35 mL/min (70-130); Calcium 7.6 mg/dL (7.8-10.44); Carbon Dioxide 26 mmol/L (23-31); Chloride 105 mmol/L (98-107); Glucose 399 mg/dL (83-110); Potassium 4.1 mmol/L (3.5-5.1); Sodium 140 mmol/L (136-145)
[2021-02-26 05:36] LABS: Band 4 % (5-11); Lymphocytes 3 % (21-51); MDiff Complete? YES; Mean Corpuscular HGB CONC 32.8 g/dL (32.0-36.0); Mean Corpuscular Hemoglobin 26.4 pg (27.0-31.0); Mean Corpuscular Volume 80.4 fL (78.0-98.0); Mean Platelet Volume 8.9 fL (7.4-10.4); Monocytes 1 % (0-10); Neutrophil 92 % (42-75); Platelet Count 201 thou/uL (130-400); RBC Distribution Width 14.8 % (11.5-14.5); Red Blood Cell (RBC) Count 4.56 mill/uL (4.70-6.10); White Blood Cell (WBC) Count 16.4 thou/uL (4.8-10.8)
[2021-02-26] MEDS: methylPREDNISolone Sod Succ 40 MG VIAL IVP SCH ×4 (07:09→23:27)
[2021-02-26] MEDS ORDERED: Dextrose 5% in Water 1,000 ML IV PRN (08:11)
[2021-02-26] MEDS ORDERED: Dextrose 50% Abboject 50 ML SYRINGE SLOW IVP PRN (08:11)
[2021-02-26] MEDS: Aspirin 81 mg Enteric Coated Tablet PO SCH (09:39)
[2021-02-26] MEDS: Enoxaparin Sodium 40 MG/0.4 ML SYRINGE SC SCH (09:39)
[2021-02-26] MEDS: Tamsulosin HCl 0.4 MG CAP PO SCH (09:39)
[2021-02-26] MEDS: guaiFENesin ER 600 MG TAB PO SCH ×2 (09:39→21:04)
[2021-02-26] MEDS: Pregabalin 75 MG CAP PO SCH ×2 (09:39→21:03)
[2021-02-26] MEDS: Polyethylene Glycol 3350 17 GM Packet PO SCH ×2 (09:40→21:04)
[2021-02-26] MEDS: Senokot S 8.6-50 MG TAB PO SCH ×2 (09:40→21:04)
[2021-02-26] MEDS: Meropenem 1 GM, Admixture Fee 1 EACH in Sodium Chloride 0.9% 100 ML IVPB SCH ×2 (11:04→23:27)
[2021-02-26] MEDS: VANCOMYCIN 1.25 GM/250 ML BAG 1.25 GM in Premix Bag 1 BAG IVPB SCH (11:05)
[2021-02-26] MEDS: HumaLOG 300 UNITS/3 ML VIAL SC PRN ×3 (12:00→21:54)
[2021-02-26 15:17] VITALS: BP 140/78
[2021-02-26] MEDS: Dutasteride 0.5 MG CAP PO SCH (21:03)
[2021-02-26] MEDS: Rosuvastatin 20 MG TAB PO SCH (21:03)
[2021-02-26] MEDS: Ezetimibe 10 MG TAB PO SCH (21:04)
[2021-02-26] MEDS: Melatonin 3 MG TAB PO PRN (21:04)
[2021-02-26] MEDS: ALPRAZolam 0.25 MG TAB PO PRN (21:44)
[2021-02-27] MEDS: Lorazepam 2 MG/ML VIAL SLOW IVP PRN ×3 (00:15→18:28)
[2021-02-27 04:18] LABS: Hemoglobin 11.9 g/dL (14.0-18.0); Mean Corpuscular HGB CONC 31.9 g/dL (32.0-36.0); Mean Corpuscular Hemoglobin 26.1 pg (27.0-31.0); Mean Corpuscular Volume 81.8 fL (78.0-98.0); Platelet Count 188 thou/uL (130-400); RBC Distribution Width 14.9 % (11.5-14.5); Red Blood Cell (RBC) Count 4.57 mill/uL (4.70-6.10)
[2021-02-27 04:21] LABS: Anion Gap 12 mmol/L (10-20); BUN (Urea Nitrogen) 49 mg/dL (8.4-25.7); Calc. Creatinine Clearance 42 mL/min (70-130); Calcium 7.6 mg/dL (7.8-10.44); Carbon Dioxide 27 mmol/L (23-31); Chloride 108 mmol/L (98-107); Glucose 327 mg/dL (83-110); Potassium 4.4 mmol/L (3.5-5.1); Sodium 143 mmol/L (136-145)
[2021-02-27 05:10] LABS: Band 4 % (5-11); Lymphocytes 2 % (21-51); MDiff Complete? YES; Metamyelocyte 1 % (0-0); Monocytes 6 % (0-10); Neutrophil 87 % (42-75); Nucleated RBC 1 % (0)
[2021-02-27] MEDS: methylPREDNISolone Sod Succ 40 MG VIAL IVP SCH ×4 (05:49→23:17)
[2021-02-27] MEDS ORDERED: Furosemide 40 MG/4 ML VIAL SLOW IVP SCH (07:45)
[2021-02-27] MEDS: Senokot S 8.6-50 MG TAB PO SCH ×2 (09:12→21:17)
[2021-02-27] MEDS: guaiFENesin ER 600 MG TAB PO SCH ×2 (09:12→21:16)
[2021-02-27] MEDS: Pregabalin 75 MG CAP PO SCH ×2 (09:12→21:16)
[2021-02-27] MEDS: Tamsulosin HCl 0.4 MG CAP PO SCH (09:12)
[2021-02-27] MEDS: Polyethylene Glycol 3350 17 GM Packet PO SCH ×2 (09:14→21:16)
[2021-02-27] MEDS: Enoxaparin Sodium 40 MG/0.4 ML SYRINGE SC SCH (09:14)
[2021-02-27] MEDS: Aspirin 81 mg Enteric Coated Tablet PO SCH (09:15)
[2021-02-27] MEDS: VANCOMYCIN 1.25 GM/250 ML BAG 1.25 GM in Premix Bag 1 BAG IVPB SCH (10:03)
[2021-02-27 10:17] LABS: INR-International Normal Ratio 1.3; Prothrombin Time 15.8 sec (12.0-14.7)
[2021-02-27 10:36] LABS: Troponin I 0.523 ng/mL (< 0.028)
[2021-02-27 10:48] LABS: Actual Bicarbonate (HCO3a) 30.5 mEq/L (22-28); CO2 Tension 43.3 mmHg (35.0-45.0); Calcium, Ionized (arterial) 1.04 mmol/L (1.12-1.30); Carboxyhemoglobin (COHb) 0.1 gm% (0.0-3.0); Hemoglobin (Hb) 12.8 g/dL (14.0-18.0); pH, Arterial 7.47 (7.35-7.45)
[2021-02-27 10:49] LABS: Puncture Site RRA
[2021-02-27 10:50] LABS: ALV-art Gradient 173.075 mmHg (0-20)
[2021-02-27] MEDS ORDERED: HYDROmorphone 0.5 MG/0.5 ML SYRINGE SLOW IVP PRN (12:10)
[2021-02-27] MEDS: Meropenem 1 GM, Admixture Fee 1 EACH in Sodium Chloride 0.9% 100 ML IVPB SCH ×2 (12:33→23:19)
[2021-02-27 13:05] LABS: Troponin I 0.546 ng/mL (< 0.028)
[2021-02-27] MEDS: NPH, Human Insulin Isophane 300 UNIT/3 ML VIAL SC SCH ×2 (13:33→21:15)
[2021-02-27 14:13] LABS: SARS-CoV-2 PCR by NAA Not Detected (NotDetected)
[2021-02-27 15:55] LABS: Critical Call Chem Troponin I RESULT DECREASING; Troponin I 0.531 ng/mL (< 0.028)
[2021-02-27] MEDS: Ezetimibe 10 MG TAB PO SCH (21:16)
[2021-02-27] MEDS: Dutasteride 0.5 MG CAP PO SCH (21:16)
[2021-02-27] MEDS: Rosuvastatin 20 MG TAB PO SCH (21:17)
[2021-02-28] MEDS: Lorazepam 2 MG/ML VIAL SLOW IVP PRN ×4 (02:45→19:19)
[2021-02-28] MEDS: NPH, Human Insulin Isophane 300 UNIT/3 ML VIAL SC SCH ×2 (03:21→10:00)
[2021-02-28 03:57] LABS: #Lymphocytes 0.6 thou/uL (1.20-3.40); #Monocytes 0.7 thou/uL (0.11-0.59); #Neutrophils 12.4 thou/uL (1.40-6.50); %Eosinophils 0.1 % (0.0-10.0); %Monocytes 5.4 % (0.0-10.0); %Neutrophils 90.5 % (42.0-75.0); Hemoglobin 11.8 g/dL (14.0-18.0); Mean Corpuscular HGB CONC 32.2 g/dL (32.0-36.0); Mean Corpuscular Volume 80.7 fL (78.0-98.0); Mean Platelet Volume 9.4 fL (7.4-10.4); Platelet Count 163 thou/uL (130-400); Red Blood Cell (RBC) Count 4.52 mill/uL (4.70-6.10); White Blood Cell (WBC) Count 13.7 thou/uL (4.8-10.8)
[2021-02-28 04:16] LABS: Anion Gap 16 mmol/L (10-20); BUN (Urea Nitrogen) 55 mg/dL (8.4-25.7); Calc. Creatinine Clearance 38 mL/min (70-130); Calcium 7.5 mg/dL (7.8-10.44); Carbon Dioxide 28 mmol/L (23-31); Chloride 105 mmol/L (98-107); Glucose 290 mg/dL (83-110); Potassium 4.6 mmol/L (3.5-5.1); Sodium 144 mmol/L (136-145)
[2021-02-28] MEDS: methylPREDNISolone Sod Succ 40 MG VIAL IVP SCH ×3 (05:53→18:32)
[2021-02-28 09:45] LABS: Vancomycin, Trough 22.2 ug/mL
[2021-02-28] MEDS: Polyethylene Glycol 3350 17 GM Packet PO SCH ×2 (09:55→21:06)
[2021-02-28] MEDS: Aspirin 81 mg Enteric Coated Tablet PO SCH (09:55)
[2021-02-28] MEDS: Pregabalin 75 MG CAP PO SCH ×2 (09:55→21:06)
[2021-02-28] MEDS: guaiFENesin ER 600 MG TAB PO SCH ×2 (09:55→21:06)
[2021-02-28] MEDS: Senokot S 8.6-50 MG TAB PO SCH ×2 (09:56→21:06)
[2021-02-28] MEDS: Tamsulosin HCl 0.4 MG CAP PO SCH (09:56)
[2021-02-28] MEDS: Enoxaparin Sodium 40 MG/0.4 ML SYRINGE SC SCH (09:59)
[2021-02-28] MEDS: Meropenem 1 GM, Admixture Fee 1 EACH in Sodium Chloride 0.9% 100 ML IVPB SCH (09:59)
[2021-02-28] MEDS: Pantoprazole 40 MG VIAL IVP SCH (09:59)
[2021-02-28] MEDS: VANCOMYCIN 1.25 GM/250 ML BAG 1.25 GM in Premix Bag 1 BAG IVPB SCH (10:33)
[2021-02-28] MEDS ORDERED: Furosemide 40 MG/4 ML VIAL SLOW IVP SCH (17:00)
[2021-02-28] MEDS: Dutasteride 0.5 MG CAP PO SCH (21:05)
[2021-02-28] MEDS: Ezetimibe 10 MG TAB PO SCH (21:06)
[2021-02-28] MEDS: Rosuvastatin 20 MG TAB PO SCH (21:06)
[2021-03-01] MEDS: methylPREDNISolone Sod Succ 40 MG VIAL IVP SCH ×3 (00:04→20:07)
[2021-03-01 04:09] LABS: Hemoglobin 12.9 g/dL (14.0-18.0); Mean Corpuscular HGB CONC 31.6 g/dL (32.0-36.0); Mean Corpuscular Hemoglobin 25.8 pg (27.0-31.0); Mean Corpuscular Volume 81.6 fL (78.0-98.0); Mean Platelet Volume 9.6 fL (7.4-10.4); Platelet Count 186 thou/uL (130-400); RBC Distribution Width 15.1 % (11.5-14.5); Red Blood Cell (RBC) Count 5.01 mill/uL (4.70-6.10); White Blood Cell (WBC) Count 18.7 thou/uL (4.8-10.8)
[2021-03-01 04:17] LABS: Anion Gap 16 mmol/L (10-20); BUN (Urea Nitrogen) 65 mg/dL (8.4-25.7); Calc. Creatinine Clearance 36 mL/min (70-130); Calcium 7.9 mg/dL (7.8-10.44); Carbon Dioxide 29 mmol/L (23-31); Chloride 106 mmol/L (98-107); Glucose 288 mg/dL (83-110); Potassium 4.3 mmol/L (3.5-5.1); Sodium 147 mmol/L (136-145)
[2021-03-01 04:38] LABS: Band 4 % (5-11); Elliptocytes SLIGHT = 2-5 cells (100X) (0-1/hpf); Lymphocytes 4 % (21-51); MDiff Complete? YES; Metamyelocyte 1 % (0-0); Monocytes 3 % (0-10); Neutrophil 88 % (42-75); Schistocytes SLIGHT = 2-5 cells (100X) (0-1/hpf)
[2021-03-01] MEDS: Lorazepam 2 MG/ML VIAL SLOW IVP PRN ×4 (06:31→22:24)
[2021-03-01] MEDS: Vancomycin 1 GM in Premix Bag 1 BAG IVPB SCH (08:52)
[2021-03-01] MEDS: Enoxaparin Sodium 40 MG/0.4 ML SYRINGE SC SCH (08:52)
[2021-03-01] MEDS: Pantoprazole 40 MG VIAL IVP SCH (08:52)
[2021-03-01] MEDS: Pregabalin 75 MG CAP PO SCH ×2 (08:53→21:00)
[2021-03-01] MEDS: Polyethylene Glycol 3350 17 GM Packet PO SCH ×2 (08:53→21:00)
[2021-03-01] MEDS: Aspirin 81 mg Enteric Coated Tablet PO SCH (08:53)
[2021-03-01] MEDS: guaiFENesin ER 600 MG TAB PO SCH ×2 (08:53→21:00)
[2021-03-01] MEDS: Tamsulosin HCl 0.4 MG CAP PO SCH (08:54)
[2021-03-01] MEDS: Senokot S 8.6-50 MG TAB PO SCH ×2 (08:54→21:02)
[2021-03-01] MEDS ORDERED: Meropenem 1 GM in Sodium Chloride 0.9% 100 ML IVPB SCH ×2 (09:10→10:00)
[2021-03-01] MEDS: NPH, Human Insulin Isophane 300 UNIT/3 ML VIAL SC SCH ×2 (12:47→17:51)
[2021-03-01] MEDS: Dutasteride 0.5 MG CAP PO SCH (20:59)
[2021-03-01] MEDS: Ezetimibe 10 MG TAB PO SCH (21:00)
[2021-03-01] MEDS: Rosuvastatin 20 MG TAB PO SCH (21:01)
[2021-03-01] MEDS: Meropenem 1 GM in Sodium Chloride 0.9% 100 ML IVPB SCH (22:18)
[2021-03-02] MEDS: NPH, Human Insulin Isophane 300 UNIT/3 ML VIAL SC SCH ×4 (00:49→17:51)
[2021-03-02] MEDS: Lorazepam 2 MG/ML VIAL SLOW IVP PRN ×3 (02:29→21:27)
[2021-03-02 03:57] LABS: Anion Gap 12 mmol/L (10-20); BUN (Urea Nitrogen) 70 mg/dL (8.4-25.7); Calc. Creatinine Clearance 35 mL/min (70-130); Calcium 7.9 mg/dL (7.8-10.44); Carbon Dioxide 28 mmol/L (23-31); Chloride 114 mmol/L (98-107); Glucose 186 mg/dL (83-110); Potassium 4.3 mmol/L (3.5-5.1); Sodium 150 mmol/L (136-145)
[2021-03-02 05:38] LABS: Band 5 % (5-11); Hemoglobin 13.8 g/dL (14.0-18.0); Lymphocytes 2 % (21-51); MDiff Complete? YES; Mean Corpuscular HGB CONC 30.7 g/dL (32.0-36.0); Mean Corpuscular Volume 81.3 fL (78.0-98.0); Mean Platelet Volume 10.1 fL (7.4-10.4); Monocytes 4 % (0-10); Neutrophil 89 % (42-75); Platelet Count 173 thou/uL (130-400); RBC Distribution Width 15.5 % (11.5-14.5); Red Blood Cell (RBC) Count 5.54 mill/uL (4.70-6.10); White Blood Cell (WBC) Count 23.2 thou/uL (4.8-10.8)
[2021-03-02] MEDS: Pantoprazole 40 MG VIAL IVP SCH (08:41)
[2021-03-02] MEDS: Enoxaparin Sodium 40 MG/0.4 ML SYRINGE SC SCH (08:41)
[2021-03-02] MEDS: methylPREDNISolone Sod Succ 40 MG VIAL IVP SCH ×2 (08:41→21:27)
[2021-03-02] MEDS: Aspirin 81 mg Enteric Coated Tablet PO SCH (08:42)
[2021-03-02] MEDS: Pregabalin 75 MG CAP PO SCH ×2 (08:42→21:32)
[2021-03-02] MEDS: Vancomycin 1 GM in Premix Bag 1 BAG IVPB SCH (08:42)
[2021-03-02] MEDS: Polyethylene Glycol 3350 17 GM Packet PO SCH ×2 (08:42→21:32)
[2021-03-02] MEDS: guaiFENesin ER 600 MG TAB PO SCH ×2 (08:42→21:32)
[2021-03-02] MEDS: Tamsulosin HCl 0.4 MG CAP PO SCH (08:43)
[2021-03-02] MEDS: Senokot S 8.6-50 MG TAB PO SCH ×2 (08:43→21:33)
[2021-03-02] MEDS: Meropenem 1 GM in Sodium Chloride 0.9% 100 ML IVPB SCH ×2 (09:42→21:29)
[2021-03-02] MEDS: Lactated Ringer's 1,000 ML IV SCH (09:43)
[2021-03-02 12:27] VITALS: BMI 22.6
[2021-03-02] MEDS: Dutasteride 0.5 MG CAP PO SCH (21:32)
[2021-03-02] MEDS: Ezetimibe 10 MG TAB PO SCH (21:32)
[2021-03-02] MEDS: Rosuvastatin 20 MG TAB PO SCH (21:33)
[2021-03-03] MEDS: Lactated Ringer's 1,000 ML IV SCH ×2 (03:15→06:57)
[2021-03-03 03:48] LABS: #Lymphocytes 0.5 thou/uL (1.20-3.40); #Monocytes 0.9 thou/uL (0.11-0.59); #Neutrophils 21.5 thou/uL (1.40-6.50); %Eosinophils 0.1 % (0.0-10.0); %Lymphocytes 2.2 % (21.0-51.0); %Neutrophils 93.7 % (42.0-75.0); Hemoglobin 14.7 g/dL (14.0-18.0); Mean Corpuscular HGB CONC 31.7 g/dL (32.0-36.0); Mean Corpuscular Hemoglobin 26.5 pg (27.0-31.0); Mean Corpuscular Volume 83.3 fL (78.0-98.0); Mean Platelet Volume 10.9 fL (7.4-10.4); Platelet Count 141 thou/uL (130-400); RBC Distribution Width 15.5 % (11.5-14.5); Red Blood Cell (RBC) Count 5.54 mill/uL (4.70-6.10)
[2021-03-03 04:13] LABS: Anion Gap 18 mmol/L (10-20); BUN (Urea Nitrogen) 74 mg/dL (8.4-25.7); Calc. Creatinine Clearance 35 mL/min (70-130); Calcium 8.2 mg/dL (7.8-10.44); Carbon Dioxide 23 mmol/L (23-31); Chloride 119 mmol/L (98-107); Glucose 160 mg/dL (83-110); Potassium 5.1 mmol/L (3.5-5.1); Sodium 155 mmol/L (136-145)
[2021-03-03] MEDS: Lorazepam 2 MG/ML VIAL SLOW IVP PRN ×3 (05:09→15:47)
[2021-03-03] MEDS: NPH, Human Insulin Isophane 300 UNIT/3 ML VIAL SC SCH ×3 (06:56→13:23)
[2021-03-03] MEDS ORDERED: Lactated Ringer's 1,000 ML IV SCH (07:29)
[2021-03-03] MEDS: Aspirin 81 mg Enteric Coated Tablet PO SCH (09:04)
[2021-03-03] MEDS: Polyethylene Glycol 3350 17 GM Packet PO SCH (09:05)
[2021-03-03] MEDS: Tamsulosin HCl 0.4 MG CAP PO SCH (09:05)
[2021-03-03] MEDS: Senokot S 8.6-50 MG TAB PO SCH (09:05)
[2021-03-03] MEDS: guaiFENesin ER 600 MG TAB PO SCH (09:05)
[2021-03-03] MEDS: Pregabalin 75 MG CAP PO SCH (09:05)
[2021-03-03] MEDS: Pantoprazole 40 MG VIAL IVP SCH (11:10)
[2021-03-03] MEDS: Meropenem 1 GM in Sodium Chloride 0.9% 100 ML IVPB SCH (11:10)
[2021-03-03] MEDS: methylPREDNISolone Sod Succ 40 MG VIAL IVP SCH (11:10)
[2021-03-03] MEDS: Enoxaparin Sodium 40 MG/0.4 ML SYRINGE SC SCH (11:10)
[2021-03-03] MEDS: Vancomycin 1 GM in Premix Bag 1 BAG IVPB SCH (11:11)
[2021-03-03 17:36] VITALS: TEMP 96
== END 2021-03-03 17:51 | disposition hospice, inpatient (51) | DRG 177 ==
LOC: ERS 11:15 → T4-A 13:28 → CCU 02-21 02:08 → IMCU/EMU 02-23 08:25
PROVIDERS: ADMIT Internal Medicine; ATTEND Hospitalist
PROC: 5A09557 Assistance with Respiratory Ventilation, Greater than 96 Consecutive Hours, Continuous Positive Airway Pressure (ICD-10-PCS; principal; 2021-02-23)
DX: J69.0 Pneumonitis due to inhalation of food and vomit (principal); J96.01 Acute respiratory failure with hypoxia; E43 Unspecified severe protein-calorie malnutrition; G93.41 Metabolic encephalopathy; A41.9 Sepsis, unspecified organism; R04.2 Hemoptysis; N17.9 Acute kidney failure, unspecified; Z66 Do not resuscitate; E78.5 Hyperlipidemia, unspecified; I25.10 Atherosclerotic heart disease of native coronary artery without angina pectoris; Z20.822 Contact with and (suspected) exposure to COVID-19; N18.30 Chronic kidney disease, stage 3 unspecified; I12.9 Hypertensive chronic kidney disease with stage 1 through stage 4 chronic kidney disease, or unspecified chronic kidney disease; D63.1 Anemia in chronic kidney disease; I48.0 Paroxysmal atrial fibrillation; K21.00 Gastro-esophageal reflux disease with esophagitis, without bleeding; N40.0 Benign prostatic hyperplasia without lower urinary tract symptoms; J47.9 Bronchiectasis, uncomplicated; Z96.653 Presence of artificial knee joint, bilateral; Z95.0 Presence of cardiac pacemaker; Z79.899 Other long term (current) drug therapy; Z78.1 Physical restraint status; Z68.22 Body mass index [BMI] 22.0-22.9, adult
CPT/HCPCS: 0240U; 36415; 36416; 36600; 71045; 71275; 74018; 80048; 80053; 80202; 82140; 82550; 82805; 83605; 83880; 84145; 84443; 84484; 85025; 85610; 85730; 87040; 87070; 87205; 87449; 87633; 87899; 93005; 93306; 94640; 94660; 96365; 96375; C9113; J0456; J0696; J1644; J1650; J1815; J1940; J1956; J2060; J2185; J2920; J3370; J3490; J7050; J7120; J7620; Q0162; Q0169; Q9967; U0003; U0005

== ENCOUNTER 2021-03-03 17:46 | Inpatient (IN) | payer OTHER ==
[2021-03-03] MEDS ORDERED: Morphine 4 MG/ML VIAL SLOW IVP PRN (18:26)
[2021-03-03] MEDS ORDERED: Scopolamine 1.5 mg/72 hour Patch TOP PRN (18:30)
[2021-03-03] MEDS ORDERED: Acetaminophen 650 MG Suppository PR PRN (18:30)
[2021-03-03] MEDS ORDERED: Ondansetron PF 4 MG/2 ML Vial IVP PRN (18:30)
[2021-03-03] MEDS: Morphine 4 MG/ML VIAL SLOW IVP PRN ×5 (18:40→21:12)
[2021-03-03] MEDS: Lorazepam 2 MG/ML VIAL SLOW IVP PRN ×3 (18:48→21:12)
[2021-03-04] MEDS: Lorazepam 2 MG/ML VIAL SLOW IVP PRN ×3 (01:04→06:22)
[2021-03-04] MEDS: Morphine 4 MG/ML VIAL SLOW IVP PRN ×4 (01:04→06:21)
[2021-03-04 11:35] VITALS: TEMP 98.2
== END 2021-03-04 15:19 | disposition expired | DRG 951 ==
LOC: IMCU/EMU 17:46
PROVIDERS: ADMIT Family Medicine; ATTEND Family Medicine
DX: Z51.5 Encounter for palliative care (principal); G93.41 Metabolic encephalopathy; J18.9 Pneumonia, unspecified organism; J69.0 Pneumonitis due to inhalation of food and vomit; J96.01 Acute respiratory failure with hypoxia; E43 Unspecified severe protein-calorie malnutrition; I25.10 Atherosclerotic heart disease of native coronary artery without angina pectoris; N40.0 Benign prostatic hyperplasia without lower urinary tract symptoms; E78.5 Hyperlipidemia, unspecified; N18.30 Chronic kidney disease, stage 3 unspecified; J47.9 Bronchiectasis, uncomplicated; I12.9 Hypertensive chronic kidney disease with stage 1 through stage 4 chronic kidney disease, or unspecified chronic kidney disease; I48.0 Paroxysmal atrial fibrillation; Z66 Do not resuscitate; Z95.5 Presence of coronary angioplasty implant and graft; Z95.0 Presence of cardiac pacemaker; Z68.24 Body mass index [BMI] 24.0-24.9, adult
CPT/HCPCS: J2060; J2270